=== PATIENT | male | born 1935 | race Caucasian/White ===

== ENCOUNTER 2021-02-04 19:23 | Emergency (ER) | payer MEDICARE, MEDICAID ==
[~2021-02-04] VITALS: Ht 170.2 cm; Wt 72.7 kg
[~2021-02-04 19:23] MED LIST: ASPI81TA30 PO; ATI0.5T PO; LISI20TA28 PO; MECL-226 PO; SIMV40TA PO
[2021-02-04 19:24] VITALS: BP 134/54
[2021-02-04] MEDS ORDERED: METO-395 PO (19:57)
[2021-02-04] MEDS ORDERED: POTA8CAP20 PO (19:57)
[2021-02-04] MEDS ORDERED: CITA10TA9 PO (19:57)
[2021-02-04] MEDS ORDERED: LEVO112T52 PO (19:57)
[2021-02-04] MEDS ORDERED: FURO40TA4 PO (19:57)
--- NOTE | 2021-02-04 19:57 | NUR ---
pt daughter reports being unable to take pills. pt crushes all pills and places in applesauce at home.
[2021-02-04 20:01] LABS: BASOPHILS # (AUTO) 0.1 X10'3 (0-0.2); BASOPHILS % (AUTO) 0.9 % (0-1); EOSINOPHILS # (AUTO) 0.1 X10'3 (0-0.9); EOSINOPHILS % (AUTO) 2.5 % (0-6); HEMATOCRIT 34.3 % (42.0-52.0); HEMOGLOBIN 11.6 g/dl (14.0-17.9); LYMPHOCYTES # (AUTO) 1.7 X10'3 (1.1-4.8); LYMPHOCYTES % (AUTO) 30.6 % (21-51); MEAN CORPUSCULAR HEMOGLOBIN 35.2 PG (27.0-31.0); MEAN CORPUSCULAR HGB CONC 33.9 g/dL (33.0-36.5); MEAN CORPUSCULAR VOLUME 103.9 FL (78-98); MEAN PLATELET VOLUME 6.9 FL (7.4-10.4); MONOCYTES # (AUTO) 0.8 X10'3 (0-0.9); MONOCYTES % (AUTO) 14.8 % (2-12); NEUTROPHILS # (AUTO) 2.9 X10'3 (1.8-7.7); NEUTROPHILS % (AUTO) 51.2 % (42-75); PLATELET COUNT 113 X10'3 (140-440); RED CELL DISTRIBUTION WIDTH 14.5 % (11.5-14.5); WHITE BLOOD COUNT 5.6 X10'3 (4.5-11.0)
[2021-02-04] MEDS ORDERED: furosemide 40mg/4ml inj IV ONE (20:05)
[2021-02-04 20:07] LABS: ALANINE AMINOTRANSFERASE 13 U/L (12-78); ALBUMIN 3.3 G/DL (3.4-5.0); ALBUMIN/GLOBULIN RATIO 0.6 (1.1-1.5); ALKALINE PHOSPHATASE 121 IU/L (46-116); ANION GAP 6 (8-16); ASPARTATE AMINO TRANSFERASE 21 U/L (10-37); BLOOD UREA NITROGEN 23 MG/DL (7-18); CALCIUM 8.8 MG/DL (8.5-10.1); CHLORIDE 105 MMOL/L (99-107); CREATININE 1.21 MG/DL (0.60-1.10); GLUCOSE 99 MG/DL (70-104); SODIUM 138 MMOL/L (135-145); TOTAL PROTEIN 8.9 G/DL (6.4-8.2); eGFR 57 ML/MIN
[2021-02-04] MEDS ORDERED: FURO-150 PO (20:58)
[2021-02-04] MEDS ORDERED: IBUP-1984 PO (21:09)
== END 2021-02-04 21:39 | disposition home or self-care (01) ==
LOC: ER 19:24
DX: R60.0 Localized edema (principal); I50.9 Heart failure, unspecified; Z86.73 Personal history of transient ischemic attack (TIA), and cerebral infarction without residual deficits; Z88.8 Allergy status to other drugs, medicaments and biological substances; Z79.899 Other long term (current) drug therapy
CPT/HCPCS: 36415; 71045; 80053; 83880; 85025; 93005; 96374; 99285; J1940

== ENCOUNTER 2021-02-08 16:42 | Emergency (ER) | payer MEDICARE, MEDICAID ==
[~2021-02-08] VITALS: Ht 172.7 cm; Wt 72.7 kg
[~2021-02-08 16:42] MED LIST changes: -ASPI81TA30 PO; -ATI0.5T PO; +CITA10TA9 PO; +FURO-150 PO; +FURO40TA4 PO; +IBUP-1984 PO; +LEVO112T52 PO; -LISI20TA28 PO; -MECL-226 PO; +METO-395 PO; +POTA8CAP20 PO
[2021-02-08 18:59] VITALS: BP 138/63
[2021-02-08 18:59] LABS: BASOPHILS % (AUTO) 0.7 % (0-1); EOSINOPHILS # (AUTO) 0.1 X10'3 (0-0.9); EOSINOPHILS % (AUTO) 1.6 % (0-6); HEMATOCRIT 30.9 % (42.0-52.0); HEMOGLOBIN 10.6 g/dl (14.0-17.9); LYMPHOCYTES # (AUTO) 0.8 X10'3 (1.1-4.8); LYMPHOCYTES % (AUTO) 14.8 % (21-51); MEAN CORPUSCULAR HEMOGLOBIN 35.2 PG (27.0-31.0); MEAN CORPUSCULAR HGB CONC 34.1 g/dL (33.0-36.5); MEAN CORPUSCULAR VOLUME 103.1 FL (78-98); MONOCYTES # (AUTO) 0.9 X10'3 (0-0.9); MONOCYTES % (AUTO) 16.3 % (2-12); NEUTROPHILS # (AUTO) 3.6 X10'3 (1.8-7.7); NEUTROPHILS % (AUTO) 66.6 % (42-75); PLATELET COUNT 86 X10'3 (140-440); RED CELL DISTRIBUTION WIDTH 14.6 % (11.5-14.5); WHITE BLOOD COUNT 5.4 X10'3 (4.5-11.0)
[2021-02-08 19:14] LABS: ALANINE AMINOTRANSFERASE 11 U/L (12-78); ALBUMIN/GLOBULIN RATIO 0.6 (1.1-1.5); ALKALINE PHOSPHATASE 92 IU/L (46-116); ANION GAP 9 (8-16); ASPARTATE AMINO TRANSFERASE 20 U/L (10-37); BLOOD UREA NITROGEN 27 MG/DL (7-18); BUN/CREATININE RATIO 22.5 (5.4-32.0); CALCIUM 8.1 MG/DL (8.5-10.1); CHLORIDE 103 MMOL/L (99-107); GLUCOSE 100 MG/DL (70-104); MAGNESIUM 2.1 MG/DL (1.5-2.4); POTASSIUM 4.2 MMOL/L (3.5-5.1); SODIUM 135 MMOL/L (135-145); TOTAL CARBON DIOXIDE 22.7 MMOL/L (24-32); TOTAL PROTEIN 8.1 G/DL (6.4-8.2); eGFR 57 ML/MIN
[2021-02-08 19:22] LABS: PLATELET ESTIMATE DECREASED
[2021-02-08 19:23] LABS: BANDS% (MANUAL) 3 % (0-10); NEUTROPHILS % (MANUAL) 67 % (42-75); TOTAL CELLS COUNTED 100
[2021-02-08 19:24] LABS: EOSINOPHILS % (MANUAL) 2 % (0-6); LYMPHOCYTES % (MANUAL) 19 % (21-51); MONOCYTES % (MANUAL) 9 % (2-12)
[2021-02-08] MEDS ORDERED: normal saline 500ml IV soln 500 ML IV ONE (19:25)
[2021-02-08] MEDS ORDERED: CEPH250T PO (19:29)
[2021-02-08 19:35] LABS: CLARITY,URINE CLEAR (Clear); COLOR,URINE YELLOW (Yellow); GLUCOSE, URINE NEGATIVE (Neg); KETONES,URINE NEGATIVE (Neg); LEUKOCYTE ESTERASE ,URINE TRACE (Neg); NITRITES, URINE NEGATIVE (Neg); OCCULT BLOOD,URINE NEGATIVE (Neg); PROTEIN,URINE TRACE mg/dl (Neg)
[2021-02-08 19:47] LABS: UA COLLECTION TYPE CLN CATCH MIDSTREAM
[2021-02-08 19:50] LABS: RBC,URINE NONE SEEN /HPF (0-2); WBC,URINE 0-4 /HPF (0-4)
[2021-02-08 19:51] LABS: BACTERIA,URINE NONE SEEN /HPF (Neg); SQUAMOUS EPITHELIAL CELL,UR FEW /LPF (FEW)
[2021-02-08] MEDS ORDERED: cephalexin 500mg capsule PO ONE (20:00)
== END 2021-02-08 20:19 | disposition home or self-care (01) ==
LOC: ER 16:42
DX: L03.115 Cellulitis of right lower limb (principal); L03.116 Cellulitis of left lower limb; R60.0 Localized edema; R53.1 Weakness; R50.9 Fever, unspecified; Z86.73 Personal history of transient ischemic attack (TIA), and cerebral infarction without residual deficits; I50.9 Heart failure, unspecified; Z88.8 Allergy status to other drugs, medicaments and biological substances; Z79.2 Long term (current) use of antibiotics; Z79.899 Other long term (current) drug therapy
CPT/HCPCS: 36415; 71045; 80053; 81001; 83605; 83735; 84145; 85007; 85008; 85025; 87040; 99284; J7040

== ENCOUNTER 2021-11-17 11:10 | Emergency (ER) | payer MEDICARE, MEDICAID ==
[~2021-11-17] VITALS: Ht 152.4 cm; Wt 75.0 kg
[~2021-11-17 11:10] MED LIST changes: -CITA10TA9 PO; +CITA10TA93 PO; -FURO-150 PO; -IBUP-1984 PO
[2021-11-17] MEDS ORDERED: LIDOcaine Viscous 15ml cup MM STA (12:41)
[2021-11-17 13:30] VITALS: BP 145/63
== END 2021-11-17 13:36 | disposition home or self-care (01) ==
LOC: ER 11:11
DX: R13.10 Dysphagia, unspecified (principal); I50.9 Heart failure, unspecified; Z86.73 Personal history of transient ischemic attack (TIA), and cerebral infarction without residual deficits; Z88.8 Allergy status to other drugs, medicaments and biological substances; Z79.899 Other long term (current) drug therapy; Z87.19 Personal history of other diseases of the digestive system
CPT/HCPCS: 93005; 99283

== ENCOUNTER 2022-03-23 00:36 | Emergency (ER) | payer MEDICARE, MEDICAID ==
[~2022-03-23] VITALS: Ht 152.4 cm; Wt 80.0 kg
[2022-03-23] MEDS ORDERED: FENTANYL-0.9 % NACL/PF 100 ML IV PRN (01:00)
[2022-03-23] MEDS ORDERED: midazolam 100mg in NS 100ml 100 ML IV PRN (01:00)
[2022-03-23 01:09] LABS: ABG BASE EXCESS -19.2 mmol/L (-2.0-2.0); ABG HCO3 15.5 mmol/L (22.0-26.0); ABG OXYGEN SATURATION 91.8 % (94-97); ABG PCO2 (T) 98.1 mmHg (35.0-48.0); ABG PO2 (T) 107.8 mmHg (75.0-100.0); ALLEN'S TEST POSITIVE; FMetHb 0.4 % (0.0-1.5); FO2Hb 91.4 % (94-97); PEEP 10 cm H2O; RESPIRATORY RATE 16 b/min; TIDAL VOLUME 450 mL; TOTAL HEMOGLOBIN 10.4 G/dl (14.0-18.0)
[2022-03-23 01:10] VITALS: BP 95/54
[2022-03-23] MEDS: NORepinephrine 8mg/ 250ml NS 250 ML IV SCH ×2 (01:15→01:18)
[2022-03-23] MEDS: vasopressin inj. 40 UNIT in dextrose 5%-water 50ml 38 ML IV SCH ×2 (01:18→01:50)
--- NOTE | 2022-03-23 01:46 | NUR ---
OG AT 0052
[2022-03-23 01:47] LABS: CLARITY,URINE CLOUDY (Clear); COLOR,URINE YELLOW (Yellow); GLUCOSE, URINE NEGATIVE (Neg); KETONES,URINE NEGATIVE (Neg); LEUKOCYTE ESTERASE ,URINE NEGATIVE (Neg); NITRITES, URINE NEGATIVE (Neg); OCCULT BLOOD,URINE LARGE (Neg); PH,URINE 6.5 (4.8-8.0); PROTEIN,URINE 100 mg/dl (Neg)
[2022-03-23 01:48] LABS: BASOPHILS # (AUTO) 0.1 X10'3 (0-0.2); BASOPHILS % (AUTO) 0.6 % (0-1); EOSINOPHILS # (AUTO) 0.1 X10'3 (0-0.9); EOSINOPHILS % (AUTO) 1.7 % (0-6); HEMATOCRIT 29.1 % (42.0-52.0); HEMOGLOBIN 9.5 g/dl (14.0-17.9); LYMPHOCYTES # (AUTO) 3.7 X10'3 (1.1-4.8); LYMPHOCYTES % (AUTO) 46.4 % (21-51); MEAN CORPUSCULAR HGB CONC 32.5 g/dL (33.0-36.5); MEAN CORPUSCULAR VOLUME 107.6 FL (78-98); MEAN PLATELET VOLUME 6.9 FL (7.4-10.4); MONOCYTES % (AUTO) 12.1 % (2-12); NEUTROPHILS # (AUTO) 3.1 X10'3 (1.8-7.7); NEUTROPHILS % (AUTO) 39.2 % (42-75); PLATELET COUNT 69 X10'3 (140-440); RED CELL DISTRIBUTION WIDTH 17.1 % (11.5-14.5); UA COLLECTION TYPE NON-SPECIFIED; WHITE BLOOD COUNT 7.9 X10'3 (4.5-11.0)
[2022-03-23 01:50] LABS: ALANINE AMINOTRANSFERASE 16 U/L (12-78); ALBUMIN 2.6 G/DL (3.4-5.0); ALBUMIN/GLOBULIN RATIO 0.6 (1.1-1.5); ALKALINE PHOSPHATASE 79 IU/L (46-116); ANION GAP 15 (8-16); ASPARTATE AMINO TRANSFERASE 29 U/L (10-37); BILIRUBIN,TOTAL 0.6 MG/DL (0.1-1.0); BLOOD UREA NITROGEN 12 MG/DL (7-18); BUN/CREATININE RATIO 10.3 (5.4-32.0); CALCIUM 7.8 MG/DL (8.5-10.1); CHLORIDE 99 MMOL/L (99-107); CREATININE 1.17 MG/DL (0.60-1.10); POTASSIUM 4.5 MMOL/L (3.5-5.1); SODIUM 135 MMOL/L (135-145); TOTAL CARBON DIOXIDE 21.4 MMOL/L (24-32); TOTAL PROTEIN 7.1 G/DL (6.4-8.2); eGFR 59 ML/MIN
[2022-03-23 01:54] LABS: WBC,URINE 0-4 /HPF (0-4)
[2022-03-23 01:55] LABS: AMORPHOUS URATES 1+; BACTERIA,URINE FEW /HPF (Neg); MUCUS STRANDS MODERATE /LPF (Neg); RENAL CELLS, URINE FEW /HPF; SPERM MODERATE /HPF (NEGATIVE); SQUAMOUS EPITHELIAL CELL,UR FEW /LPF (FEW); TRANSITIONAL EPI CELLS,URINE MODERATE /HPF
[2022-03-23 01:56] LABS: COARSE GRANULAR CAST 0-3 /LPF (NEGATIVE); HYALINE CASTS 0-3 /LPF (NEGATIVE)
[2022-03-23 02:19] LABS: GLUCOSE 210 MG/DL (70-104)
[2022-03-23] MEDS ORDERED: TORS100T15 PO (02:22)
[2022-03-23 02:30] LABS: URINE AMPHETAMINE SCREEN NEGATIVE (Neg); URINE BARBITUATE SCREEN NEGATIVE (Neg); URINE BENZODIAZEPINES SCREEN NEGATIVE (Neg); URINE CANNABINOID SCREEN NEGATIVE (Neg); URINE COCAINE SCREEN NEGATIVE (Neg); URINE METHADONE SCREEN NEGATIVE (Neg); URINE OPIATE SCREEN NEGATIVE (Neg); URINE PHENCYCLIDINE SCREEN NEGATIVE (Neg)
[2022-03-23 02:36] LABS: D-DIMER 18.63 MG/L FEU (0-0.50)
[2022-03-23 02:52] VITALS: BP 93/55
[2022-03-23] MEDS ORDERED: epiNEPHrine inj 5 MG in normal saline 250ml IV soln 245 ML IV SCH (03:05)
--- NOTE | 2022-03-23 03:08 | NUR ---
Danny MATIAS chose fentanyl rate of 50mcg/hr
[2022-03-23 03:21] LABS: APTT 118 SECONDS (22-32)
--- NOTE | 2022-03-23 03:32 | NUR ---
Per Danny MATIAS, we are withdrawing care. Ordered fentanyl at max rate of 200 and versed at max rate of 20. Epi drip stopped. Norepi and vasopressin continuing. Addendum: 03/23/22 at 0338 by RBOLT Fentanyl at 350mcg/hr per Danny MATIAS
[2022-03-23 04:21] VITALS: BP 62/39
[2022-03-23 04:28] LABS: ANISOCYTOSIS 1+; NUCLEATED RED BLOOD CELLS 1 /100WBC (0-0); PLATELET ESTIMATE DECREASED; POLYCHROMASIA FEW; TOTAL CELLS COUNTED 100
[2022-03-23 04:29] LABS: ELLIPTOCYTES FEW
[2022-03-23 04:30] LABS: BURR CELLS 2+
--- NOTE | 2022-03-23 04:58 | NUR ---
Per Danny MATIAS, withdraw vasopressin and norepi.
--- NOTE | 2022-03-23 05:30 | NUR ---
PEGGY MATIAS AT BEDSIDE PERFORMING ULTRASOUND. PEGGY MATIAS CALLED TIME OF AT 3451
[2022-03-23] MEDS ORDERED: epiNEPHrine 0.1mg/ml 10ml syringe ONE (08:00)
[2022-03-23] MEDS ORDERED: NORepinephrine 1 mg/ml inj IV ONE (08:00)
[2022-03-23] MEDS ORDERED: calcium chloride 100 MG/1 ML inj IV ONE (08:00)
[2022-03-23] MEDS ORDERED: sodium bicarbonate (8.4%) 1 mEq/ml syringe ONE (08:00)
[2022-03-23] MEDS ORDERED: sod chloride 0.9% 10ml flush syringe IV ONE (08:00)
--- NOTE | 2022-03-23 13:12 | NUR ---
PARISA LEMON CALLED x2 BY [facility]HT[facility] RN AND x1 BY NURSING PATROL MOTHER, MESSAGES LEFT EACH TIME FOR ETA ON PT PICKUP
--- NOTE | 2022-03-23 14:40 | NUR ---
MAHESH AND CLARK ARRIVED. ETT AND PIVS REMOVED AT THEIR REQUEST BY PT'S RN. EXPIRATION MEMORANDUM SIGNED BY AYANA NIEVES @ [id number]
== END 2022-03-23 14:30 ==
LOC: ER 00:37
DX: R41.82 Altered mental status, unspecified (principal); I46.8 Cardiac arrest due to other underlying condition; I11.0 Hypertensive heart disease with heart failure; I50.9 Heart failure, unspecified; Z86.73 Personal history of transient ischemic attack (TIA), and cerebral infarction without residual deficits
CPT/HCPCS: 36415; 36600; 70450; 71045; 71250; 74176; 80053; 80305; 81001; 82803; 83605; 84484; 85007; 85018; 85025; 85379; 85610; 85730; 86885; 86900; 86901; 93005; 94002; 94799; 96365; 96366; 96368; 99285; A6222; J0171; J3010; J3490; J7050; J7060; 99283; 99284